=== PATIENT | female | born 2000 | race Caucasian/White ===

== ENCOUNTER → 2024-11-13 12:35 | Outpatient (REF) | payer OTHER, SELFPAY ==
[2024-11-13 12:52] VITALS: BP 107/66; BP_SYST 68
== END ==
LOC: RADI 12:35
PROVIDERS: ATTENDING PHYSICIAN Podiatrist Foot & Ankle Surgery; FAMILY PHYSICIAN Family Medicine
DX: M67.472 Ganglion, left ankle and foot (principal)
CPT/HCPCS: 20606; 76882